=== PATIENT | female | born 2000 | race African-American/Black ===

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

== ENCOUNTER 2021-11-12 04:38 | Emergency (ER) | payer MEDICAID, OTHER ==
[~2021-11-12] VITALS: Ht 162.6 cm; Wt 54.0 kg
[2021-11-12] MEDS ORDERED: MORPHINE SULFATE 4 MG/ML CPJ (NOT FOR IM USE) IV ONE (05:00)
[2021-11-12] MEDS ORDERED: ONDANSETRON HCL 4MG/2ML INJ IV STA (06:32)
[2021-11-12] MEDS ORDERED: MORPHINE SULFATE 10 MG/ML CPJ IV ONE (06:45)
[2021-11-12] MEDS ORDERED: SODIUM CHLORIDE 0.9% 1,000 ML IV ONE (06:45)
[2021-11-12] MEDS ORDERED: KETAMINE HCL 50 MG/ML 10ML IV ONE (08:15)
[2021-11-12] MEDS ORDERED: PROPOFOL 200MG/20ML VIAL IV ONE (08:15)
[2021-11-12 10:00] VITALS: BP 146/84
[2021-11-12] MEDS ORDERED: IBUP-2029 MT (10:42)
[2021-11-12] MEDS ORDERED: HYDR-4001 MT (10:42)
== END 2021-11-12 10:15 | disposition home or self-care (01) ==
LOC: ER 04:38
DX: S52.201A Unspecified fracture of shaft of right ulna, initial encounter for closed fracture (principal); W17.89XA Other fall from one level to another, initial encounter; Y93.89 Activity, other specified; Y92.89 Other specified places as the place of occurrence of the external cause; Y99.8 Other external cause status
CPT/HCPCS: 25605; 73090; 73110; 96361; 96374; 96375; 96376; 99152; 99285; J2270; J2405; J2704; J3490; J7030